=== PATIENT | male | born 1990 | race Caucasian/White ===

== ENCOUNTER 2020-09-20 08:51 | Emergency (ER) | payer OTHER, SELFPAY ==
[2020-09-20 09:05] VITALS: BP 107/68; PULSE 62; RESP 18; TEMP 36.6; O2SAT 99; BMI 22.8
--- NOTE | 2020-09-20 09:32 | ED.EAR ---
HPI - Ear Problem General Chief complaint: Ear Problems Stated complaint: l ear pain Time Seen by Provider: 09/20/20 09:30 History of Present Illness HPI Narrative: Patient complains of left ear pain x1 day with no fever no chills no headache no sore throat no sinus congestion no runny nose no shortness of breath no cough no rash Related Data Previous Rx's Medication Instructions Recorded acetaminophen 1,000 mg PO Q6H PRN #30 tab 09/20/20 amoxicillin-pot clavulanate 1 tab PO BID 7 Days #14 tab 09/20/20 [Augmentin] ciprofloxacin-hydrocortisone 3 drp OTIC (EARS) BID 7 Days #10 ml 09/20/20 [Cipro HC] ibuprofen 600 mg PO Q6H PRN #20 tab 09/20/20 Allergies Allergy/AdvReac Type Severity Reaction Status Date / Time No Known Allergies Allergy Verified 09/20/20 09:08 Review of Systems Review of Systems: Review of systems is positive for left ear pain Negatives no fever no chills no dizziness no weakness no headache no neck pain no sore throat no chest pain no cough no shortness of breath no skin rash no numbness weakness or tingling Yes all other systems are reviewed and are negative PMFSH Past Medical History Source: nursing notes reviewed Medical History (Updated 09/21/20 @ 00:01 by Tj Leon) No known health problems Social History Social History Advance Directives: No Advance Directives Information Provided: No Physical Exam Vital Signs: Vital Signs: Last Vital Signs Temp 97.9 F 09/20/20 09:05 Pulse 62 09/20/20 09:05 Resp 18 09/20/20 09:05 BP 107/68 09/20/20 09:05 Pulse Ox 99 09/20/20 09:05 Body Mass Index 22.8 General appearance no acute distress The right ear is normal with a normal tympanic membrane and a normal canal with no tenderness when pressed and wide canal The left ear had tenderness when the ear was pressed, the canal was narrowed and red as well as the visible portion of tympanic membrane was red also Pharynx is clear with moist mucous membranes Neck is supple Chest clear to auscultation bilateral Heart no murmur Skin no rash Extremities full range of motion times were Neuro no gross motor or sensory deficits Course Course Course Narrative: Patient is treated for otitis externa as well as otitis media as the tympanic membrane was red Discharge Plan Discharge Clinical Impression: Otitis externa Patient Disposition: Home, Self-Care Additional Instructions: Use antibiotics and ear drops as directed Follow with primary doctor in 2-3 days if not better Return to ER any time if worse or any concerns When taking oral antibiotics it is a good idea to take probiotics, available [id number] at the pharmacy, to prevent antibiotic associated diarrhea Prescriptions: New amoxicillin-pot clavulanate [Augmentin] 875-125 mg tablet 1 tab PO BID 7 Days Qty: 14 RF: 0 Cipro HC 0.2-1 % drops,suspension 3 drp otic (ears) BID 7 Days Qty: 10 RF: 0 ibuprofen 600 mg tablet 600 mg PO Q6H PRN (Reason: pain) Qty: 20 RF: 0 acetaminophen 500 mg tablet 1,000 mg PO Q6H PRN (Reason: pain) Qty: 30 RF: 0 Stand Alone Forms: Work/School Release Interventions: ED Discharge Assessment Last Done: 09/20/20 09:40 Discharge Date/Time: 09/20/20 09:40
[2020-09-20] MEDS: Ibuprofen 600 MG TABLET PO (09:37)
[2020-09-20] MEDS: Amoxicillin/Potassium Clav 875 MG TABLET PO (09:37)
== END 2020-09-20 09:40 | disposition home or self-care (01) ==
PROVIDERS: Emergency Provider Emergency Medicine; PCP Internal Medicine
DX: H60.92 Unspecified otitis externa, left ear (principal); H66.92 Otitis media, unspecified, left ear; H92.02 Otalgia, left ear
CPT/HCPCS: 99283

== ENCOUNTER 2023-02-08 09:41 | Emergency (ER) | payer OTHER, SELFPAY ==
[2023-02-08 10:43] VITALS: BP 108/58; PULSE 58; RESP 16; TEMP 36.3; O2SAT 98; BMI 20.4
--- NOTE | 2023-02-08 11:28 | ED_ITS ---
HPI - General Adult General Chief complaint: Back Pain/Injury Stated complaint: back pain Time Seen by Provider: 02/08/23 11:28 Source: patient Mode of arrival: ambulatory Limitations: no limitations History of Present Illness HPI narrative: Patient is a 32 year old assigned male at with no reported medical history presenting to the emergency department today with low back pain. Patient states that 2.5 weeks ago he was ripping up carpet at work when he tweaked his back. Patient states that the pain has continued since. Patient states that it is worse with movement. Patient denies any dizziness, lightheadedness, abdominal pain, nausea, vomiting, fever, chills, blurry vision, double vision, loss of vision, chest pain, difficulty breathing, shortness of breath, night sweats, pain with urination, increased urinary frequency, increased urinary urgency, blood in his urine or stool, syncope or a near syncopal episode, bowel incontinence, bladder incontinence, bowel retention, bladder retention, or any other complaints at this time. Onset (ago): week(s) (2.5) Location: back Severity: mild Severity scale (1-10): 3 Quality: aching and dull Pain Consistency: constant Relieving factors: none Exacerbating factors: movement Associated symptoms: denies other symptoms Treatments prior to arrival: none Related Data Previous Rx's Medication Instructions Recorded acetaminophen 500 mg tablet 1,000 mg (2 x 500 mg) PO Q6H PRN 09/20/20 pain #30 tabs amoxicillin 875 mg-potassium 1 tab PO BID 7 days #14 tabs 09/20/20 clavulanate 125 mg tablet (Augmentin) ciprofloxacin 0.2 %-hydrocortisone 3 drp otic (ears) BID 7 days #10 mL 09/20/20 1 % ear drops,suspension (Cipro HC) ibuprofen 600 mg tablet 600 mg PO Q6H PRN pain #20 tabs 09/20/20 cyclobenzaprine 5 mg tablet 5 mg PO TID PRN back pain 7 days 02/08/23 #21 tabs naproxen 500 mg tablet 500 mg PO BID 7 days #14 tabs 02/08/23 Allergies Allergy/AdvReac Type Severity Reaction Status Date / Time No Known Allergies Allergy Verified 09/20/20 09:08 Review of Systems Constitutional: Constitutional: Reports no additional constitutional complaints, Denies chills, Denies fever(s) and Denies night sweats Eyes: Eyes: Reports no additional eye complaints, Denies blurry vision, Denies change in vision, Denies diplopia, Denies eye discharge, Denies loss of vision and Denies eye pain ENT: Denies dizziness Cardiovascular: Cardiovascular: Reports no additional cardiovascular complaints, Denies chest pain, Denies lightheadedness, Denies Loss of Consciousness and Denies dyspnea Respiratory: Respiratory: Reports no additional respiratory complaints and Denies dyspnea Gastrointestinal: Gastrointestinal: Reports no additional gastrointestinal complaints, Denies abdominal pain, Denies melena, Denies hematochezia, Denies change in bowel habits and Denies change in stool character Genitourinary: Genitourinary: Reports no additional male genitourinary complaints, Denies hematuria, Denies oliguria, Denies difficulty urinating, Denies dysuria, Denies urinary frequency, Denies urinary hesitancy, Denies urinary incontinence and Denies urinary urgency Musculoskeletal: Musculoskeletal: Reports no additional musculoskeletal complaints, Reports back pain, Denies numbness and Denies tingling Neurologic: Denies dizziness, Denies loss of vision, Denies numbness and Denies tingling Psychiatric: Psychiatric: Reports no additional psychiatric complaints Endocrine: Endocrine: Reports no additional endocrine complaints Hematologic/Lymphatic: Hematologic/Lymphatic: Reports no additional hematologic/lymphatic complaints Allergic/Immunologic: Allergic/Immunologic: Reports no additional allergic/immunologic complaints PMFSH Past Medical History Attestation statement: The following information was validated with the patient. Source: old records reviewed and nursing notes reviewed Medical History No known health problems Social History Social History Smoked in Last 30 Days: No Use of substances other than those prescribed or required for medical reasons: Yes Substance Use Type: Marijuana Advance Directives: No Advance Directives Information Provided: Yes Physical Exam ED Vital Signs: Vital Signs - 24 hr 02/08/23 10:43 Temperature 97.3 F Pulse Rate 58 Respiratory Rate 16 Blood Pressure 108/58 L Pulse Oximetry 98 Oxygen Delivery Method Room Air BMI result Body Mass Index 20.4 Const General: cooperative, no acute distress, alert and awake Nutritional Appearance: well nourished Orientation/consciousness: patient oriented x3 Limitations: no limitations HENMT Head: Yes normal to inspection and Yes atraumatic Ears: hearing grossly normal bilaterally and external ears normal General nose exam: Normal external nose present, no nasal discharge noted and no epistaxis Face and sinus: Yes normal facial exam, No abrasion and No laceration Mouth: Normal oral and palatal mucosa present, no drooling and no muffled voice Eyes General: appearance normal, both eyes and all related structures Periorbital: periorbital findings normal Eyelids: Yes eyelids normal Conjunctivae: conjunctivae normal Pupils: Equal, round and reactive pupils present EOM: EOMs intact bilaterally Neck Neck: Yes normal visual inspection, Yes full ROM and Yes no lymphadenopathy Chest Chest palpation & inspection: normal inspection of the chest Resp Effort & Inspection: normal respiratory effort and able to speak in complete sentences GI Inspection: Yes normal to inspection General: Yes no CVA tenderness Back/Spine/Pelvis Back: no CVA tenderness Cervical Spine: normal cervical lordosis and cervical ROM normal Thoracic/Lumbar Spine: thoracic and lumbar spine normal to inspection and thoraco-lumbar ROM normal Neuro General: patient oriented x3 and moves all extremities Cranial nerves: Yes Equal, round and reactive pupils present Cognition (Neuro): normal cognition Motor exam (neuro): 5/5 motor strength present throughout Sensory Exam: Normal double simultaneous stimulation for sensation Coordination: [id number]-on-ngel test normal Extrem General: Yes normal to inspection, Yes full ROM and Yes capillary refill normal Psych Appearance: grossly normal Mental Status: mental status grossly normal Affect: normal affect Attitude: cooperative Thought process: Normal thought process present Thought content: Normal thought content present Insight: Good insight present (Psych) Medications Administered Discontinued Medications Generic Name Dose Route Start Last Admin Trade Name Gerardo PRN Reason Stop Dose Admin Cyclobenzaprine HCl 5 mg 02/08/23 11:30 02/08/23 11:51 Cyclobenzaprine Hcl 5 Mg Tablet PO 02/08/23 11:31 5 mg ONCE ONE Administration Ketorolac Tromethamine 15 mg 02/08/23 11:30 02/08/23 11:52 Ketorolac Tromethamine 15 Mg/Ml Vial IM 02/08/23 11:31 15 mg ONCE ONE Administration Medical Decision Making Medical Decision Making [facility] Narrative: Patient is a 32 year old assigned male at with no reported medical history presenting to the emergency department today with low back pain. Patient's physical exam was unremarkable. I explained my physical exam findings to the patient. I answered all questions asked by the patient. Patient received IM Toradol and PO Flexeril which he stated helped his symptoms significantly. I stressed the importance of the patient taking his medication as prescribed. I stressed the importance of the patient following up with his primary care provider. Given that it is a work injury, I recommended the patient follow up with [facility]. I instructed the patient to follow up with a security systems specialist if pain were to persist greater than an additional 2 weeks. I stressed the importance of the patient returning to the emergency department immediately if his symptoms were to worsen or if he were to develop any dizziness, shortness of breath, difficulty breathing, chest pain, blurry vision, loss of vision, nausea, vomiting, abdominal pain, fever, chills, back pain, or any other complaints. Patient verbalized agreement and understanding with this treatment plan and discharge. Differential Diagnosis Differential Diagnoses: The differential diagnosis associated with the presentation includes Low back pain Lumbar strain Lumbar sprain Tests considered The following testing was considered but not selected: Lumbar x-ray was considered but given the patient's clinical presentation and mechanism of injury, it was not warranted at this time. I discussed this with the patient who was in agreement. Prescription Management I considered prescription management with: Pain Medication (patient prescribed naproxen and flexeril for pain management.) Discharge Plan Discharge Clinical Impression: Strain of lumbar region Patient Disposition: Home, Self-Care Instructions: Back Pain (ED) Additional Instructions: Follow up with your primary care provider. Given that this was a work place injury, you should also follow up with [facility]. If pain persists greater than an additional 2 weeks, follow up with a security systems specialist. Return to the emergency department immediately if your symptoms worsen or if you develop any dizziness, shortness of breath, difficulty breathing, chest pain, blurry vision, loss of vision, nausea, vomiting, abdominal pain, fever, chills, back pain, or any other complaints. Prescriptions: New cyclobenzaprine 5 mg tablet 5 mg PO TID PRN (Reason: back pain) 7 Days Qty: 21 0RF naproxen 500 mg tablet 500 mg PO BID 7 Days Qty: 14 0RF No Action amoxicillin-pot clavulanate [Augmentin] 875-125 mg tablet 1 tab PO BID 7 Days Qty: 14 0RF Cipro HC 0.2-1 % drops,suspension 3 drp otic (ears) BID 7 Days Qty: 10 0RF ibuprofen 600 mg tablet 600 mg PO Q6H PRN (Reason: pain) Qty: 20 0RF acetaminophen 500 mg tablet 1,000 mg PO Q6H PRN (Reason: pain) Qty: 30 0RF Referrals: [facility] [Provider Group] (If you pain persists greater than an additional 2 weeks, please follow up with a security systems specialist.) [facility] [Provider Group] (Given this was a work place injury, call to establish and follow up with [facility].) Sahil Hughes MD [Primary Care Provider] - Stand Alone Forms: Work/School Release Interventions: ED Discharge Assessment Last Done: 02/08/23 11:56 Discharge Date/Time: 02/08/23 11:57 Print Language: Armenian
[2023-02-08] MEDS: Cyclobenzaprine HCl 5 MG TABLET PO (11:51)
[2023-02-08] MEDS: Ketorolac Tromethamine 15 MG/ML VIAL IM (11:52)
== END 2023-02-08 11:57 | disposition home or self-care (01) ==
PROVIDERS: Emergency Provider Emergency Medicine; PCP Internal Medicine
DX: S39.012A Strain of muscle, fascia and tendon of lower back, initial encounter (principal); X50.0XXA Overexertion from strenuous movement or load, initial encounter; Y93.89 Activity, other specified; Y92.89 Other specified places as the place of occurrence of the external cause; Y99.0 Civilian activity done for income or pay
CPT/HCPCS: 96372; 99284; J1885